=== PATIENT | male | born 1935 | race Caucasian/White ===

== ENCOUNTER → 2019-05-09 | Outpatient (CLI) | payer OTHER | LOC: SJCVC 14:09 | DX: I48.0 Paroxysmal atrial fibrillation (principal); I10 Essential (primary) hypertension; E78.5 Hyperlipidemia, unspecified; Z79.899 Other long term (current) drug therapy; Z85.46 Personal history of malignant neoplasm of prostate ==

== ENCOUNTER → 2019-06-13 | Outpatient (CLI) | payer OTHER | LOC: SJCVCIMAG 08:50 | DX: I48.0 Paroxysmal atrial fibrillation (principal); E78.5 Hyperlipidemia, unspecified; I10 Essential (primary) hypertension; I35.1 Nonrheumatic aortic (valve) insufficiency; I70.0 Atherosclerosis of aorta ==

== ENCOUNTER → 2019-12-26 | Outpatient (CLI) | payer OTHER | LOC: SJCVCIMAG 10:16 | PROVIDERS: ATTEND Internal Medicine | DX: I65.23 Occlusion and stenosis of bilateral carotid arteries (principal) ==

== ENCOUNTER → 2020-01-09 | Outpatient (CLI) | payer OTHER ==
--- NOTE | 2020-01-15 16:21 | LINQ ---
[facility] [place] [address] LINQ PROCEDURE REPORT Name: BRAN STEIN Room #: REG [place]#: [id number] Admission: 01/09/20 Attend Phys: Ayad Elizabeth Discharge: Date of : 31 Report #: [id number] THIS REPORT FOR: cc: Huey Moss Aaron DO Lammoglia,Ayad Melton MD ~ THIS REPORT FOR: //name// APPROVED REPORT Study performed: 01/09/2020 14:35:33 Patient Status: Out-Patient Room #: Event Personnel: Ayad Elizabeth MD Exam: Reveal LINQ Insertion The patient is a 84 year-old male with a history of Palpitations and near syncope. Implanted Devices: [employer]: Reveal LINQ; Model #: LNQ11; SN: [id number]; Use by: 2020-04-27 Procedure The patient underwent informed consent. We discussed the details of the procedure including the risks, which include, but not limited to bleeding, infection, vascular damage, cardiac perforation, and pneumothorax. After informed consent was obtained patient brought to cardiac catheterization laboratory prepped and hold. Left chest was prepped and draped in usual sterile manner. Using 1% lidocaine a small wheal was raised and a local instillation of long the proposed insertion tract was accomplished. Using an 11 blade a small incision was made. Using both sharp and blunt dissection a pocket was generated Vance parallel to the ribs in the anterior rib muscular portion. The device was then delivered per standard company issued delivery device. Subcutaneous tissue was closed with 2 simple interrupted sutures and the skin was closed with a 3-0 absorbable running subcuticular. 4 x 4 were placed after Steri-Strips OpSite. Patient tired procedure well there were no complications Complications The patient tolerated the procedure well and there were no complications associated with the procedure. [facility] [employer] [place] [address] Awdio PROCEDURE REPORT Name: BRAN STEIN Room #: REG [facility]#: [id number] Admission: 01/09/20 Attend Phys: Ayad Burkett Discharge: Date of : 31 Report #: [id number] Findings Specimens Removed: No Conclusion 1. Successful implantation of ILR with excellent Rwave detection Recommendations 1. Routine post insertion protocol <ELECTRONICALLY SIGNED> By: Ayad Elizabeth MD 01/15/20 1620 19 19 Ayad Elizabeth MD /INF
== END ==
LOC: CATH 10:48
PROVIDERS: ATTEND Internal Medicine
DX: R55 Syncope and collapse (principal); R42 Dizziness and giddiness; R53.83 Other fatigue; I48.0 Paroxysmal atrial fibrillation; E78.5 Hyperlipidemia, unspecified; I10 Essential (primary) hypertension; Z79.899 Other long term (current) drug therapy; Z98.890 Other specified postprocedural states; Z85.46 Personal history of malignant neoplasm of prostate

== ENCOUNTER → 2020-12-01 | Outpatient (CLI) | payer OTHER ==
[~2020-12-01] MED LIST: CASODEX 50 MG T50 M1 PO; ELIQUIS5 MG PO; NORVASC 2.5 MG2.5 M1 PO; TIMOLOL 0.5%-DO10 ML EA. EYE; XALATAN2.5 M1 OPHTHALMIC
== END ==
LOC: SJCVC 13:45
PROVIDERS: ATTEND Internal Medicine
DX: R00.1 Bradycardia, unspecified (principal); R53.1 Weakness; I10 Essential (primary) hypertension; I48.0 Paroxysmal atrial fibrillation; E78.5 Hyperlipidemia, unspecified; I44.0 Atrioventricular block, first degree; Z90.49 Acquired absence of other specified parts of digestive tract; Z79.899 Other long term (current) drug therapy

== ENCOUNTER 2020-12-07 09:20 | Observation (INO) | payer OTHER ==
[~2020-12-07] VITALS: Ht 167.6 cm; Wt 68.0 kg
[2020-12-07] VITALS (10 sets, daily range): BP systolic 122–171; BP diastolic 71–88
[2020-12-07] MEDS ORDERED: NORVASC 2.5 MG2.5 M1 PO (11:02)
[2020-12-07] MEDS ORDERED: ELIQUIS5 MG PO (11:02)
[2020-12-07] MEDS ORDERED: CASODEX 50 MG T50 M1 PO (11:02)
[2020-12-07] MEDS ORDERED: TIMOLOL 0.5%-DO10 ML EA. EYE (11:03)
[2020-12-07] MEDS ORDERED: XALATAN2.5 M1 OPHTHALMIC (11:05)
[2020-12-07 12:07] LABS: HEMATOCRIT 28.8 % (42.0-52.0); HEMOGLOBIN 9.8 gm/dL (14.0-18.0); MCH 32.8 pg (26.0-34.0); MCHC 34.1 g/dL (28.0-37.0); MCV 95.9 fL (80.0-100.0); RDW 13.3 % (10.5-14.5); WBC 4.1 thou/uL (4.0-11.0)
[2020-12-07 12:15] LABS: CALCIUM 7.6 mg/dL (8.5-10.1); CREATININE 1.1 mg/dL (0.7-1.3); POTASSIUM 3.8 mmol/L (3.5-5.1)
--- NOTE | 2020-12-07 20:12 | NUR ---
ADMITTED THIS PATIENT FROM [facility] POST PACEMAKER INSERTION, ON ROOM AIR BREATHING SPONTANEOUSLY.WITH PACEMAKER INSERTION SITE AT LEFT CHEST COVERED WITH INTACT DRESSING DRY AND INTACT.NOT IN PAIN OR DISTRESS.ADMISSION COMPLETED.ALL NEEDS ATTENDED.HANDED OVER TO THE EARTH SCIENCE TECHNICAL OFFICER
--- NOTE | 2020-12-08 03:09 | NUR ---
ASSUMED CARE OF PT AT 1900, ASSESSMENT COMPLETED NOTED. LEFT ARM REMAINS IMMOBILIZED AT THIS TIME, PACEMAKER DRESSING CLEAN, DRY AND INTACT. PT DENIES PAIN AT THIS TIME, WILL CONTINUE TO WORK TOWARDS PT'S POC.
[2020-12-08 04:50] VITALS: BP 134/87
[2020-12-08 07:20] VITALS: BP 136/92
[2020-12-08] MEDS ORDERED: ELIQUIS5 MG PO (07:45)
--- NOTE | 2020-12-08 08:57 | NUR ---
85 year old male with a medical hx of paroxysmal atrial fibrillation, HLD, and hypertension. He was seen by Dr. Elizabeth in the office on 12/01 with complaints of weakness that was associated with a-fib with RVR, and more frequent episodes. The patient has been hemodynamically stable overnight and deemed appropriate for discharge. The patient has been given post procedure instructions and will be seen on 12-14-20 at 1000 for device interrogation and wound check. Daughter Mariajose Sharma at [phone] and son Rodger Sharma at [phone] are listed as next of kin and son Rodger listed as DPOA. Per assessment and instructions the patient plans to discharge home today with son and without needs at this time for CM.
[2020-12-08 09:57] VITALS: BP 136/92
[2020-12-08 12:00] VITALS: BP 141/88
--- NOTE | 2020-12-08 13:31 | NUR ---
patient discharges with nursing staff. patient taken via wheelchair with all belongings. discharge paperwork provided and signed.
--- NOTE | 2020-12-11 10:49 | CATHLAB ---
[facility] [address] [place] [address] INVASIVE PROCEDURE REPORT Name: BRAN STEIN Odette Room #: 215-[facility] [place]#: [id number] Admission: 12/07/20 Attend Phys: Ayad Elizabeth Discharge: 12/08/20 Date of : 31 Report #: [id number] THIS REPORT FOR: cc: Huey Moss Aaron DO Lammoglia,Ayad Melton MD ~ APPROVED REPORT Study performed: 12/07/2020 12:41:18 Event Personnel: Ayad Elizabeth Packaging Operator, Pablito Collado RN RN, Alena Sorensen RTR Monitor, Aleshia Bryan RTR, DANII Singh, Adam Graham RTR Monitor Exam: Insertion of Dual Chamber Permanent Pacemaker, Supervision of conscious sedation Indications: SSS,PAF, Tachy-Jose Syndrome The patient is a 85 year-old male with a history of Sick Sinus Syndrome. Conscious Sedation Start time: 12:30 End Time: 14:06 Fentanyl mcg Versed 2 mg Implanted Devices: [employer]- IPG W3DR01 KENNA Yañez DR MRI MODEL#W3DR01, SN:[id number] [employer]- RA LEAD- MODEL# 5076-52, SN:[id number] [employer]- RV LEAD-MODEL# 5076-58, SN:[id number] Procedure The patient underwent informed consent. We discussed the details of the procedure including the risks, which include, but not limited to bleeding, infection, vascular damage, cardiac perforation, and pneumothorax. He understood these risks and was willing to proceed. As such, he was brought to the EP/Cardiac Catheterization laboratory in a fasting and sedated state and prepped and draped in a The patient underwent conscious sedation, with no related complications. The patient was brought to the EP/Cardiac Catheterization laboratory and the left chest and shoulder were prepped and draped in a sterile manner. During this case, Fluoroscopy and no contrast were used for imaging. IV conscious sedation was used throughout procedure with appropriate [address] [address] INVASIVE PROCEDURE REPORT Name: BRAN STEIN Odette Room #: 215-[facility] [place] ..#: [id number] Admission: 12/07/20 Attend Phys: Ayad Burkett Discharge: 12/08/20 Date of : 31 Report #: [id number] monitoring and was performed in the presence of a registered nurse who was an independent trained observer other than the physician performing the procedure. The left subclavian region was infiltrated with 2% Lidocaine subcutaneous anesthesia. A transverse incision was made in the left upper chest cavity. The subcutaneous pocket was formed via blunt dissection. Percutaneous venous access was achieved and an introducer sheath was inserted into the left Subclavian vein. Sheaths were positions using the modified Seldinger technique Through the introducer sheaths the atrial and ventricular lead wires were positioned in the right atrial appendage and right ventricular apex respectively. Capturing and sensing thresholds were verified. Electrode Parameters P Wave: 1.6 R Wave: 9.9 Atrial Threshold: 1.0 Ventricular Threshold: 0.5 Single Chamber The atrial and ventricular leads were then secured using 2.0 ethibond sutures. The subcutaneous pocket was irrigated with antibiotic solution.The ventricular lead was attached to the appropriate receptacle on the pulse generator and set screws firmly tightened to insure adequate contact and stability. Dual Chamber The atrial and ventricular leads were then secured using 0 Nurolon sutures. The subcutaneous pocket was irrigated with ancef antibiotic solution.The atrial and ventricular leads were attached to the appropriate receptacles on the pulse generator and set screws firmly tightened to insure adequate contact and stability. The lead and pulse generator were placed into the subcutaneous pocket. Sharp and sponge counts were confirmed to be correct. At this time the pocket was closed subcutaneously with a 2.0 Vicryl running locking stitch and the skin was closed with a 3.0 Vicryl subcutaneous stitch. The operative site was dressed in sterile fashion with skin affix and the patient was transferred to the floor in stable condition. Complications The patient tolerated the procedure well and there were no complications associated with the procedure. Findings [address] [address] INVASIVE PROCEDURE REPORT Name: BRAN STEIN Room #: 215-[facility] [place] M.R.#: [id number] Admission: 12/07/20 Attend Phys: Ayad Burkett Discharge: 12/08/20 Date of : 31 Report #: [id number] Estimated Blood Loss: 10cc Conclusion 1. Succesful implantation of Dual Chamber Pacemaker Recommendations 1. Routine post implant protocol <ELECTRONICALLY SIGNED> By: Ayad Elizabeth MD 12/11/20 1049 1049 1049 Ayad Elizabeth MD /INF
== END 2020-12-08 13:30 | disposition home or self-care (01) ==
LOC: CATH 09:20 → 2N 15:43
PROVIDERS: ADMIT Internal Medicine; ATTEND Internal Medicine
DX: I49.5 Sick sinus syndrome (principal); I48.0 Paroxysmal atrial fibrillation; E78.5 Hyperlipidemia, unspecified; I10 Essential (primary) hypertension; Z79.899 Other long term (current) drug therapy

== ENCOUNTER → 2021-03-02 | Outpatient (CLI) | payer OTHER | LOC: SJCVC 10:01 | PROVIDERS: ATTEND Internal Medicine | DX: I48.0 Paroxysmal atrial fibrillation (principal); I10 Essential (primary) hypertension; E78.5 Hyperlipidemia, unspecified; R53.1 Weakness; Z79.899 Other long term (current) drug therapy ==